=== PATIENT | male | born 1945 | race Caucasian/White ===

== ENCOUNTER 2024-05-23 15:35 | Observation (INO) | payer MEDICARE ==
[~2024-05-23] VITALS: Ht 193 cm; Wt 92.1 kg
[~2024-05-23 15:35] MED LIST: APIX5TAB PO; ATOR10TA69 PO; DILT180C77 PO; DRON400T7 PO; LOSA100T59 PO; TAMS-1 PO
[2024-05-23 16:36] LABS: HEMATOCRIT 40.8 % (42-54); MEAN CORPUSCULAR HEMOGLOBIN 31.6 pg (27.0-33.0); MEAN CORPUSCULAR HGB CONC 33.1 g/dL (32.0-36.0); MEAN CORPUSCULAR VOLUME 95.6 fL (79-99); RED BLOOD CELL COUNT(AUTO) 4.27 MIL/uL (4.50-6.20); RED CELL DISTRIBUTION WIDTH 12.6 % (11.0-15.5); WHITE BLOOD COUNT (AUTO) 6.5 K/uL (4.8-10.8)
[2024-05-23 17:06] LABS: POTASSIUM 5.4 mmol/L (3.5-5.1)
[2024-05-23 17:11] LABS: BILIRUBIN,TOTAL 0.8 mg/dL (0.2-1.0); TOTAL PROTEIN, SERUM 7.2 g/dL (6.0-8.3)
[2024-05-23] MEDS: METOPROLOL TARTRATE 50 MG TAB ONE (17:47)
[2024-05-23] MEDS: METOPROLOL TARTRATE 50 MG TAB PO ONE (17:48)
[2024-05-23] MEDS: APIXABAN 2.5 MG TABLET PO ONE ×2 (17:48)
[2024-05-23] MEDS ORDERED: POTASSIUM CHLORIDE 10MEQ/100ML 100 ML IV PRN (19:00)
[2024-05-23] MEDS ORDERED: ACETAMINOPHEN 325 MG TAB PO PRN ×2 (19:00)
[2024-05-23] MEDS ORDERED: ONDANSETRON 4MG INJ IV PRN (19:00)
[2024-05-23] MEDS ORDERED: MAG/ALUM/SIMETH 30 ML UDCUP PO PRN (19:00)
[2024-05-23] MEDS ORDERED: GUAIFENESIN-DM 200/20 MG 10 ML PO PRN (19:00)
[2024-05-23] MEDS ORDERED: POTASSIUM CHLORIDE 10% ELIXIR 20 MEQ/15 ML UDCUP PO PRN (19:00)
[2024-05-23] MEDS ORDERED: GLUCAGON 1MG KIT 1 MG ML IM PRN (19:00)
[2024-05-23] MEDS ORDERED: LACTULOSE 20 GM/30 ML UDCUP PO PRN (19:00)
[2024-05-23] MEDS ORDERED: HYDRALAZINE 20MG/ML VIAL IV PRN (19:00)
[2024-05-23] MEDS ORDERED: MAGNESIUM 2GM PREMIX 50ML 50 ML IV PRN (19:00)
[2024-05-23] MEDS ORDERED: POTASSIUM CHLORIDE 10MEQ SR TAB PO PRN (19:00)
[2024-05-23] MEDS ORDERED: DEXTROSE 50%-WATER 50 ML DISP.SYRIN IV PRN (19:00)
[2024-05-23] MEDS ORDERED: KCL 20 MEQ ERTAB PO PRN (19:00)
[2024-05-23] MEDS ORDERED: MORPHINE 2 MG SYG IVP PRN (19:00)
[2024-05-23] MEDS ORDERED: NITROGLYCERIN 0.4 MG SL TAB SL PRN (19:00)
[2024-05-23] MEDS ORDERED: DiphenhydrAMINE HCL 50 MG/ML VIAL IV PRN (19:00)
[2024-05-23] MEDS ORDERED: ZOLPIDEM TARTRATE 5 MG TAB PO PRN (19:00)
[2024-05-23] MEDS: APIXABAN 2.5 MG TABLET PO SCH (20:23)
[2024-05-23] MEDS: INSULIN HUMULIN R 100 UNIT/ML 3ML SQ SCH (20:23)
[2024-05-23 20:26] LABS: APPEARANCE,URINE CLEAR (CLEAR); BILIRUBIN,URINE NEGATIVE (NEGATIVE); COLOR,URINE LIGHT-YELLOW (YELLOW); GLUCOSE, URINE (UA) NEGATIVE (NEGATIVE); KETONES,URINE NEGATIVE (NEGATIVE); LEUKOCYTE ESTERASE ,URINE NEGATIVE Leu/uL (NEGATIVE); NITRATE,URINE NEGATIVE (NEGATIVE); OCCULT BLOOD,URINE NEGATIVE (NEGATIVE); PH,URINE 6.5 (5.0-8.0); PROTEIN,URINE 10 mg/dL (NEGATIVE); UROBILINOGEN,URINE 0.2 mg/dL (0.2-1.0)
[2024-05-23 20:50] LABS: BACTERIA,URINE Rare /HPF (None Seen); MUCUS,URINE Rare LPF (None Seen); WBC,URINE 0-1 /HPF (0-1)
[2024-05-23] MEDS: KAYEXALATE 15GM/60ML PO ONE (20:50)
[2024-05-23] MEDS: FAMOTIDINE 20MG VIAL IV SCH (20:51)
[2024-05-23] MEDS: TAMSULOSIN HCL 0.4 MG CAP.ER.24H PO SCH (20:51)
[2024-05-23] MEDS: DRONEDARONE HYDROCHLORIDE 400 MG TABLET PO SCH (20:51)
[2024-05-23] MEDS ORDERED: METOPROLOL TARTRATE 50 MG TAB PO SCH (21:00)
[2024-05-23] MEDS ORDERED: INSULIN HUMULIN R 100 UNIT/ML 3ML SQ SCH (21:00)
[2024-05-23 23:37] VITALS: O2SAT 92
[2024-05-24 00:43] VITALS: BP 122/54; PULSE 100; RESP 16
[2024-05-24] MEDS: ACETAMINOPHEN 325 MG TAB PO PRN (01:01)
[2024-05-24] MEDS: METOPROLOL TARTRATE 50 MG TAB PO SCH (01:01)
[2024-05-24 03:18] VITALS: BP 130/84; PULSE 83; RESP 16
[2024-05-24 04:17] LABS: BASOPHILS # (AUTO) 0.04 K/uL (0.00-0.20); BASOPHILS % (AUTO) 0.6 % (0.0-5.0); EOSINOPHILS # (AUTO) 0.16 K/uL (0.00-0.70); EOSINOPHILS % (AUTO) 2.4 % (0.0-8.0); IMMATURE GRANULOCYTE ABSOLUTE 0.02 K/uL (0-1); LYMPHOCYTES # (AUTO) 1.9 K/uL (1.0-4.8); LYMPHOCYTES % (AUTO) 28.4 % (21.0-51.0); MEAN CORPUSCULAR HEMOGLOBIN 31.2 pg (27.0-33.0); MEAN CORPUSCULAR HGB CONC 32.1 g/dL (32.0-36.0); MEAN CORPUSCULAR VOLUME 97.3 fL (79-99); MONOCYTES # (AUTO) 0.6 K/uL (0.1-1.0); MONOCYTES % (AUTO) 9.4 % (3.0-13.0); NEUTROPHILS % (AUTO) 58.9 % (40.0-77.0); PLATELET COUNT (AUTO) 218 K/uL (130-400); RED BLOOD CELL COUNT(AUTO) 4.01 MIL/uL (4.50-6.20); RED CELL DISTRIBUTION WIDTH 12.7 % (11.0-15.5); WHITE BLOOD COUNT (AUTO) 6.8 K/uL (4.8-10.8)
[2024-05-24 04:45] LABS: ALBUMIN 2.9 g/dL (3.5-5.0); BILIRUBIN,DIRECT 0.2 mg/dL (0.0-0.3); BILIRUBIN,TOTAL 0.6 mg/dL (0.2-1.0); MAGNESIUM 2.3 mg/dL (1.80-2.40); POTASSIUM 4.2 mmol/L (3.5-5.1); THYROID STIMULATING HORMONE 2.1 uIU/mL (0.36-3.74); TOTAL PROTEIN, SERUM 6.5 g/dL (6.0-8.3)
[2024-05-24 04:48] LABS: INR 1.26 (0.85-1.15); PROTHROMBIN TIME 13.1 SEC (9.6-11.6)
[2024-05-24 05:00] LABS: HEMOGLOBIN A1C 5.6 % (4.0-6.0)
[2024-05-24 07:00] VITALS: BP 124/86; PULSE 80; RESP 16
[2024-05-24 08:30] VITALS: O2SAT 92
[2024-05-24] MEDS: METOPROLOL SUCCINATE 50 MG TAB.SR.24H PO SCH (09:33)
[2024-05-24] MEDS: KETOROLAC 15MG/ML VIAL (15MG/ML) IV PRN (09:34)
[2024-05-24 11:00] VITALS: BP 134/96; PULSE 93; RESP 20
[2024-05-24] MEDS ORDERED: METO50TA9 PO (14:37)
[2024-05-24] MEDS ORDERED: APIX2.5T PO (14:37)
[2024-05-24] MEDS ORDERED: LOSA50TA64 PO (14:37)
[2024-05-24 16:00] VITALS: BP 118/75; PULSE 81; RESP 18
[2024-05-24] MEDS ORDERED: ATORVASTATIN 10 MG TABLET PO SCH (21:00)
== END 2024-05-24 16:10 | disposition home or self-care (01) ==
LOC: EDH 15:35 → EDHIP 15:36 → INTOOBSV 15:36 → 2AH 23:54
PROVIDERS: ADMIT Internal Medicine; ATTEND Internal Medicine
DX: I48.20 Chronic atrial fibrillation, unspecified (principal); I11.0 Hypertensive heart disease with heart failure; I50.42 Chronic combined systolic (congestive) and diastolic (congestive) heart failure; E87.1 Hypo-osmolality and hyponatremia; E87.5 Hyperkalemia; G20.B1 Parkinson's disease with dyskinesia, without mention of fluctuations; K21.9 Gastro-esophageal reflux disease without esophagitis; E78.5 Hyperlipidemia, unspecified; I95.9 Hypotension, unspecified; N40.0 Benign prostatic hyperplasia without lower urinary tract symptoms; I48.92 Unspecified atrial flutter; R55 Syncope and collapse; Z91.81 History of falling; Z79.899 Other long term (current) drug therapy; Z98.890 Other specified postprocedural states
CPT/HCPCS: 96374; 80053; 83880 ×2; 85027; 85378; 82948 ×3; 81001 ×2; 36415 ×2; 71045 ×2; 78582; 93880; 93005; 96376; 96375; 83036; 84443; 82550; 80076; 83735; 84484; 80048; 82140; 85025; 85610; 85730; 83605; 93306; 93356; 97161; 97116; 84145; J3490 ×3; A9540; A9558; G0378 ×4; J1885

== ENCOUNTER 2024-08-23 06:34 | Day surgery (SDC) | payer MEDICARE ==
[2024-08-21 11:10] VITALS: BP 103/77; PULSE 98; RESP 17; TEMP 98.1
[2024-08-21 11:11] LABS: BASOPHILS # (AUTO) 0.05 K/uL (0.00-0.20); BASOPHILS % (AUTO) 0.7 % (0.0-5.0); EOSINOPHILS # (AUTO) 0.35 K/uL (0.00-0.70); EOSINOPHILS % (AUTO) 5.2 % (0.0-8.0); HEMATOCRIT 43.9 % (42-54); IMMATURE GRANULOCYTE ABSOLUTE 0.03 K/uL (0-1); LYMPHOCYTES # (AUTO) 1.8 K/uL (1.0-4.8); LYMPHOCYTES % (AUTO) 25.8 % (21.0-51.0); MEAN CORPUSCULAR HEMOGLOBIN 30.9 pg (27.0-33.0); MEAN CORPUSCULAR HGB CONC 32.6 g/dL (32.0-36.0); MEAN CORPUSCULAR VOLUME 94.8 fL (79-99); MONOCYTES # (AUTO) 0.6 K/uL (0.1-1.0); MONOCYTES % (AUTO) 9.4 % (3.0-13.0); NEUTROPHILS % (AUTO) 58.5 % (40.0-77.0); PLATELET COUNT (AUTO) 171 K/uL (130-400); RED BLOOD CELL COUNT(AUTO) 4.63 MIL/uL (4.50-6.20); RED CELL DISTRIBUTION WIDTH 14.5 % (11.0-15.5); WHITE BLOOD COUNT (AUTO) 6.8 K/uL (4.8-10.8)
[2024-08-21 11:18] LABS: CREATININE 1.1 mg/dL (0.5-1.3); POTASSIUM 4.2 mmol/L (3.5-5.1)
[2024-08-21 11:23] LABS: INR 1.11 (0.85-1.15); PROTHROMBIN TIME 11.9 SEC (9.6-11.6)
[2024-08-21 11:24] LABS: PARTIAL THROMBOPLASTIN TIME 27.3 SEC (26.3-35.5)
[2024-08-23] VITALS (16 sets, daily range): BP systolic 103–128; BP diastolic 61–85; PULSE 70–89; RESP 12–16; TEMP 97.4–97.7
[~2024-08-23] VITALS: Ht 193 cm; Wt 73.5 kg
[~2024-08-23 06:34] MED LIST changes: +CARB1TAB33 PO; +CYCL5TAB PO; -DILT180C77 PO; -DRON400T7 PO; +FINA5TAB41 PO; -LOSA100T59 PO; +METO-408 PO; +MIDO2.5T PO; +PANT40TA54 PO; +TRAZ-185 PO
[2024-08-23] MEDS ORDERED: LIDOCAINE HCL MPF 1% 5ML VIAL ONE (07:58)
[2024-08-23] MEDS ORDERED: phenylEPHRINE HCL 10 MG/ML 1ML VIAL IV ONE (07:58)
[2024-08-23] MEDS ORDERED: ePHEDrine SULFate 50 MG/ML AMPULE ONE (07:58)
[2024-08-23] MEDS ORDERED: proPOFol 10 MG/ML 20ML VIAL IV ONE (07:59)
[2024-08-23] MEDS: FENTanyl CITRate PF 50 MCG/1 ML 2ML VIAL ONE (09:31)
[2024-08-23] MEDS: 0.9%NACL 1000ML 1,000 ML IV SCH (09:32)
[2024-08-23] MEDS: MIDAZOLAM HCL 1 MG/ML 2ML VIAL ONE (09:34)
[2024-08-23] MEDS: LIDOCAINE HCL 2% VISCOUS 15 ML UDCUP ONE (09:34)
[2024-08-24] MEDS ORDERED: MIDAZOLAM HCL 1 MG/ML 2ML VIAL IVP ONE (08:30)
[2024-08-24] MEDS ORDERED: FENTanyl CITRate PF 50 MCG/1 ML 2ML VIAL IVP ONE (08:30)
== END 2024-08-23 10:25 | disposition home or self-care (01) ==
LOC: DAH 06:34 → EDSTATUS 08:00 → DAH 10:25
PROVIDERS: ATTEND Student in an Organized Health Care Education/Training Program
DX: I48.91 Unspecified atrial fibrillation (principal); I08.1 Rheumatic disorders of both mitral and tricuspid valves; K21.9 Gastro-esophageal reflux disease without esophagitis; G20.A1 Parkinson's disease without dyskinesia, without mention of fluctuations; E78.5 Hyperlipidemia, unspecified; I11.0 Hypertensive heart disease with heart failure; I50.20 Unspecified systolic (congestive) heart failure; G20.B1 Parkinson's disease with dyskinesia, without mention of fluctuations; I95.1 Orthostatic hypotension; Z79.01 Long term (current) use of anticoagulants; Z79.899 Other long term (current) drug therapy
CPT/HCPCS: 80048; 85025; 85610; 85730; 36415; 93325; 93312; 93005; J3010; J7030; J2250; A4620; A4615; A4215; A4223 ×3; A4657; A7002; A4222; A4221; A4663; A4216 ×2; A4606; 99153; J2371; J2704; J3490